=== PATIENT | male | born 1970 | race American Indian/Alaskan Native ===

== ENCOUNTER 2018-10-21 19:15 | Emergency (ER) | payer BC, OTHER ==
[2018-10-21 19:15] VITALS: BMI 34.4
[2018-10-21 19:28] VITALS: BP 150/90; PULSE 110; RESP 20; TEMP 98.4; O2SAT 96
[2018-10-21] MEDS ORDERED: ceFAZolin 1 gm in NS 1 GM/100 ML BAG IVPB ONE (20:11)
--- NOTE | 2018-10-21 20:49 | C.PDOC ---
History Of Present Illness 48 y/o male,w/PMhx of HTN, presents to the ER complaining of pain in right 5th finger and palm which began 2 days ago. Patient states that his finger hurts with movement. Patient reports that he has some redness to the hand. He notes that is right hand dominant. He had an injury to right hand last year.Denies having any recent injury, parasthesia, weakness, color changes, fever chills, CP, SOB, nausea, and vomiting. Time Seen by Provider: 10/21/18 19:31 Chief Complaint (Nursing): Upper Extremity Problem/Injury History Per: Patient History/Exam Limitations: no limitations Onset/Duration Of Symptoms: Days Current Symptoms Are (Timing): Still Present Severity: Moderate Past Medical History Reviewed: Historical Data, Nursing Documentation, Vital Signs Vital Signs: Last Vital Signs Temp 98.4 F 10/21/18 19:20 Pulse 110 H 10/21/18 19:20 Resp 20 10/21/18 19:20 BP 150/90 10/21/18 19:20 Pulse Ox 96 10/21/18 19:20 - Medical History PMH: HTN Denies: Chronic Kidney Disease Other Surgeries: Hx of surgeries Family History: States: No Known Family Hx - Social History Hx Alcohol Use: Yes Hx Substance Use: Yes Review Of Systems Except As Marked, All Systems Reviewed And Found Negative. Constitutional: Negative for: Fever, Chills Gastrointestinal: Negative for: Nausea, Vomiting Musculoskeletal: Positive for: Hand Pain (right hand pain) Neurological: Negative for: Weakness, Numbness Physical Exam - Physical Exam Appears: Non-toxic, No Acute Distress Skin: Normal Color, Warm (increased warmth to thenar and hypothenar eminence of right hand), Dry, Other (mild erythema to right wrist, ) Head: Atraumatic, Normacephalic Eye(s): bilateral: Normal Inspection Nose: Normal Oral Mucosa: Moist Neck: Supple Chest: Symmetrical Extremity: Normal ROM, Tenderness (tenderness down shaft of right 5th finger), No Deformity, Swelling (mild swelling along palmar and dorsal aspect of right hand, mild swelling of right 5th finger), Other (no streaking, normal sensation) Pulses: Left Radial: Normal (+2), Right Radial: Normal (+2) Neurological/Psych: Oriented x3, Normal Speech ED Course And Treatment O2 Sat by Pulse Oximetry: 96 (RA) Pulse Ox Interpretation: Normal Medical Decision Making Medical Decision Making: Plan: --X-Ray- Right Hand -- Ancef IV --area of erythema demarcated w/skin marker Of note, patient declined pain medications. Updates: 20:00 X-Ray-Right Hand is negative for fracture or dislocation. On re- evaluation, patient continues to decline pain medication. Denies any complaint at this time. Understands and agrees to immediately return to the ER if having increased swelling, pain, numbness/tingling, change in color or sensation, or any other concerning/worsening, new or continued symptoms. Pt agrees to [facility]ED in 24 hours for recheck of hand and to make appt with pcp 1-2 days from now. States will call [facility] for appointments. Patient states feeling better and would like to go home. Patient is very well appearing and non-toxic. Vital signs are stable. I discussed the results of the work-up, diagnosis and treatment. Written discharge instructions were provided to patient. Additional verbal instructions were given and discussed with patient. We discussed the importance of follow up with PCP/consultants. I also reiterated reasons to immediately return to the ER including: worsening in current symptoms and/or new, continued, or concerning symptoms. Pt understood and agreed. Disposition - Disposition Referrals: Carlos Prater MD [Staff Provider] - Disposition: HOME/ ROUTINE Disposition Time: 20:50 Condition: STABLE Additional Instructions: CHRISTIE APONTE, thank you for letting us take care of you today. Your provider was Stefany Gallardo MD and you were treated for RT HAND PAIN. The emergency medical care you received today was directed at your acute symptoms. If you were prescribed any medication, please fill it and take as directed. It may take several days for your symptoms to resolve. Return to the Emergency Department if your symptoms worsen, do not improve, or if you have any other problems. Please contact your doctor or call one of the physicians/clinics you have been referred to that are listed on the Patient Visit Information form that is included in your discharge packet. Bring any paperwork you were given at discharge with you along with any medications you are taking to your follow up v isit. Our treatment cannot replace ongoing medical care by a primary care provider outside of the emergency department. Thank you for allowing the [facility] team to be part of your care today. If you had an X-Ray or CT scan: A Radiologist will review the ED reading if any change in treatment is needed we will contact you. If you had a blood, urine, or wound culture: It will take several days for the results, if any change in treatment is needed we will contact you. If you had an STI test: It will take 48 hours for the results. Please call after 1 week if you have not heard back.Return to the Emergency Department in 1 day for recheck of hand. Prescriptions: Cephalexin [cephalexin] 500 mg PO QID #40 cap Instructions: Cellulitis (Skin Infection), Adult (DC) Forms: [employer] (Italian) - Clinical Impression Clinical Impression: Cellulitis - Scribe Statement The provider has reviewed the documentation as recorded by the Tim Ro Provider Attestation: All medical record entries made by the Tim were at my direction and personally dictated by me. I have reviewed the chart and agree that the record accurately reflects my personal performance of the history, physical exam, medical decision making, and the department course for this patient. I have also personally directed, reviewed, and agree with the discharge instructions and disposition.
--- NOTE | 2018-10-21 20:51 | C.PDOC ---
Time Seen by Provider: 10/21/18 19:31 Chief Complaint (Nursing): Upper Extremity Problem/Injury Past Medical History Vital Signs: Last Vital Signs Temp 98.4 F 10/21/18 19:20 Pulse 110 H 10/21/18 19:20 Resp 20 10/21/18 19:20 BP 150/90 10/21/18 19:20 Pulse Ox 96 10/21/18 19:20 - Medical History PMH: HTN Denies: Chronic Kidney Disease - Social History Hx Alcohol Use: Yes Hx Substance Use: Yes ED Course And Treatment O2 Sat by Pulse Oximetry: 96 Disposition Counseled Patient/Family Regarding: Studies Performed, Diagnosis, Need For Followup - Disposition Referrals: Carlos Prater MD [Staff Provider] - Disposition: HOME/ ROUTINE Disposition Time: 20:49 Condition: STABLE Additional Instructions: CHRISTIE APONTE, thank you for letting us take care of you today. Your provider was Stefany Gallardo MD and you were treated for RT HAND PAIN. The emergency medical care you received today was directed at your acute symptoms. If you were prescribed any medication, please fill it and take as directed. It may take several days for your symptoms to resolve. Return to the Emergency Department if your symptoms worsen, do not improve, or if you have any other problems. Please contact your doctor or call one of the physicians/clinics you have been referred to that are listed on the Patient Visit Information form that is included in your discharge packet. Bring any paperwork you were given at discharge with you along with any medications you are taking to your follow up visit. Our treatment cannot replace ongoing medical care by a primary care provider outside of the emergency department. Thank you for allowing the [facility] team to be part of your care today. If you had an X-Ray or CT scan: A Radiologist will review the ED reading if any change in treatment is needed we will contact you. If you had a blood, urine, or wound culture: It will take several days for the results, if any change in treatment is needed we will contact you. If you had an STI test: It will take 48 hours for the results. Please call after 1 week if you have not heard back.Return to the Emergency Department in 1 day for recheck of hand. Prescriptions: Cephalexin [cephalexin] 500 mg PO QID #40 cap Instructions: Cellulitis (Skin Infection), Adult (DC) - POA Present On Arrival: None - Clinical Impression Clinical Impression: Cellulitis
--- NOTE | 2018-10-22 08:16 | RAD ---
Date of service: 10/21/2018 PROCEDURE: <HAND RIGHT 3 VIEWS> HISTORY: pain, swelling COMPARISON: None. FINDINGS: BONES: Bone alignment and mineralization are normal. There is no acute displaced fracture or bone destruction. JOINTS: The joint spaces are preserved. SOFT TISSUES: Normal. OTHER FINDINGS: None. IMPRESSION: No acute displaced fracture or dislocation.
== END 2018-10-21 20:59 | disposition home or self-care (01) ==
LOC: C.ER 19:15
DX: L03.113 Cellulitis of right upper limb (principal); I10 Essential (primary) hypertension
CPT/HCPCS: 73130; 96365; 99284; J0690